=== PATIENT | male | born 1970 | race Caucasian/White ===

== ENCOUNTER 2020-06-26 03:27 | Emergency (ER) | payer SELFPAY ==
[2020-06-26 03:53] LABS: HEMOGLOBIN 15.9 gm/dl (14.0-17.5); RED BLOOD COUNT 5.72 M/UL (4.20-5.50); WHITE BLOOD COUNT 7.1 K/UL (4.5-11.0)
[2020-06-26 04:18] LABS: BUN/CREATININE RATIO 18 (0-10)
[2020-06-26] MEDS ORDERED: GLUCOPHAGE 500500 MG PO (06:49)
[2020-06-26] MEDS ORDERED: LISINOPRIL10 MG PO (06:49)
[2020-06-26] MEDS ORDERED: IBU600 MG PO (06:49)
== END 2020-06-26 07:07 | disposition home or self-care (01) ==
LOC: ER1 03:27
PROVIDERS: Internal Medicine
DX: R07.9 Chest pain, unspecified (principal); E11.9 Type 2 diabetes mellitus without complications; I10 Essential (primary) hypertension; Z91.19 Patient's noncompliance with other medical treatment and regimen
CPT/HCPCS: 71045; 80053; 82550; 82553; 84484; 85025; 93005; 96374; 99285